=== PATIENT | male | born 1975 | race Caucasian/White ===

== ENCOUNTER → 2017-07-09 | Outpatient (CLI) | payer OTHER ==
--- NOTE | 2017-07-09 08:50 | REP ---
MAXILLOFACIAL CT WITHOUT CONTRAST: HISTORY: Septal deviation. Minimal mucosal thickening is present in the right maxillary and sphenoid sinuses. The remaining sinuses are clear. The osteomeatal units are patent. The middle and inferior nasal turbinates are partially paradoxical. There is ryley bullosa of the left middle nasal turbinate. There is minimal deviation of the nasal septum to the left. A spur is present arising from the right side of the nasal septum. The cribriform plate, medial tabor of the orbits and optic canals are intact. The carotid canals form a segment of the posterolateral tabor of the sphenoid sinus. IMPRESSION: Sinus mucosal thickening as described above. Signed by Julius Casillas MD 07/09/2017 09:17 A
== END ==
LOC: M RAD 07:08
PROVIDERS: ATTEND Otolaryngology
DX: J34.2 Deviated nasal septum (principal)